=== PATIENT | male | born 1970 | race Caucasian/White ===

== ENCOUNTER 2017-01-05 17:32 | Emergency (ER) ==
--- NOTE | 2017-01-05 18:48 | PROVIDER DOCUMENTATION ---
HPI-Abdominal Pain/GI Problem <Rylee Desai Jr - Last Filed: 01/05/17 20:02> - General Source: patient - History of Present Illness-ABD Nature of Presenting Problems: Pt is a 46 yom who presents to ER with CC of N/V since , and diarrhea since Thursday. Pt reports that him and his ate at [employer] on , and pt went to work later that night. Pt reports that he did feel a little uneasy, but decided to go to work anyways. Pt said he arrived at work, vomited several times, was offered to go home, but decided to stay and work. Pt reports that when he went home after work, his feet and scalp felt like they were "on fire" for approximately 3 hours. Pt reports that he has vomited approximately 5-10 times, and had 4 episodes of diarrhea. Pt also complains of loss of appetite since Thursday and now his feet feel as though he has been walking on hot coals. Abdominal Pain Onset Location: reports: generalized abdomen Pain Radiation: reports: no radiation Quality of Pain: reports: burning, cramping Severity in ED: reports: moderate Onset/Duration: reports: 3 days ago Timing: reports: still present, constant Activities at Onset: reports: eating Associated Symptoms: reports: diarrhea, fatigue, loss of appetite, nausea, vomiting, weakness, trouble walking. denies: anxiety, arm pain, back/neck pain , chest pain, constipation, cough, diaphoresis, dizziness, EENT symptoms, fever/ chills, genitourinary problems, headaches, heartburn, joint pain, malaise, muscle aches, sinus congestion/drainage, rash, seizure, shortness of breath, sensory/motor loss, pain with inspiration, swelling/mass in abdomen, syncope Last BM: this evening Dark Stools Present?: reports: none noticed Rectal Bleeding: reports: none Rectal Pain: reports: none Emesis Description: reports: other (food particles; no blood) <Prasanna Cabrera - Last Filed: 01/05/17 20:07> - General Chief Complaint: N/V/D Stated Complaint: VOMITING,NAUSEA,DIARRHEA Time Seen by Provider: 01/05/17 18:34 Allergies/Adverse Reactions: Patient Allergies Allergy/AdvReac Type Severity Reaction Status Date / Time No Known Allergies Allergy Verified 11/26/16 17:25 Home Medications: Home Medication List Medication Instructions Recorded Confirmed Last Taken Type Albuterol Sulfate [Proair Hfa] 8.5 gm IH Q4-6H PRN PRN #1 11/26/16 Unknown Rx hfa.aer.ad Benzonatate [Tessalon] 100 mg PO TID PRN PRN #20 capsule 11/26/16 Unknown Rx Escitalopram Oxalate [Lexapro] 10 mg PO HS 11/26/16 11/26/16 11/25/16 21:00 History Famotidine [Pepcid] 20 mg PO DAILY #20 tablet 11/26/16 Unknown Rx Ibuprofen [Motrin] 800 mg PO Q8H PRN PRN #20 tablet 11/26/16 Unknown Rx Meloxicam [Mobic] 7.5 mg PO HS 11/26/16 11/26/16 11/25/16 21:00 History Clindamycin [Cleocin] 150 mg PO Q6HR #30 capsule 12/19/16 Unknown Rx Meloxicam [Mobic] 7.5 mg PO DAILY PRN PRN #15 tablet 12/19/16 Unknown Rx Mupirocin Ointment [Bactroban 1 applicatn TOP TID #1 tube 12/19/16 Unknown Rx Ointment] Promethazine [Phenergan] 25 mg PO Q6H PRN PRN #12 tablet 01/05/17 Unknown Rx Review of Systems - Adult - REVIEW OF SYSTEMS - ADULT Constitutional: denies: chills, fever, fatique, night sweats Eyes: reports: no symptoms reported Ears, Nose, Mouth & Throat: reports: no symptoms reported Cardiovascular: denies: chest pain, edema, heart murmur, irregular heart rate, orthopnea, palpitations, poor circulation, PND, syncope Respiratory: denies: chronic cough, cough, dyspnea on exertion, excessive sputum production, hemoptysis, pleurisy, shortness of breath, wheezing Gastrointestinal: reports: abdominal pain, diarrhea, nausea, poor appetite, vomiting. denies: hematemesis, constipation, difficulty swallowing, frequent heartburn, rectal bleeding Genitourinary: reports: no symptoms reported Musculoskeletal: reports: no symptoms reported Integumentary: reports: no symptoms reported Neurological: reports: other (burning sensation in bilateral plantar and scalp) . denies: ataxia, dizziness/vertigo, headache/migraines, loss of balance, numbness, paresthesia, seizure, slurred speech, syncope, tremors Psychiatric: reports: no symptoms reported Endocrine: reports: no symptoms reported Hematologic/Lymphatic: reports: no symptoms reported Allergic/Immunologic: reports: no symptoms reported All Other Systems: Reviewed and Negative <Prasanna Cabrera - Last Filed: 01/05/17 20:07> Past History - Adult - PAST MEDICAL HISTORY-ADULT Review of Records: reports: Nursing Assessment Review, Medications Reviewed - IMMUNIZATION STATUS Childhood Immunizations: See Nurse Assessment Flu Vaccine: See Nurse Assessment <RickPrasanna - Last Filed: 01/05/17 20:07> Physical Exam-General - PHYSICAL EXAM-ADULT Initial Vital Signs Reviewed: Yes - CONSTITUTIONAL General Appearance: appears well, alert, mild distress. negative: anxious, lethargic, slow to respond, obtunded, combative - RESPIRATORY Respiratory: chest non-tender, lungs clear, normal breath sounds. negative: respiratory distress, decreased breath sounds, accessory muscle use, wheezing - CARDIOVASCULAR Cardiovascular: normal peripheral pulses, regular rate, rhythm. negative: bradycardia, tachycardia, irregularly irregular - GASTROINTESTINAL (ABDOMEN) Abdominal Exam: non tender, soft, abnormal bowel sounds (hyperactive). negative : normal bowel sounds, distended, rebound, tenderness, mass - SKIN Integumentary: normal color, normal turgor, warm/dry. negative: diaphoresis, erythema, rash, swelling, tenderness, warm - NEUROLOGIC Neurologic: grossly normal, no motor/sensory deficits. negative: facial droop, focal weakness, motor weakness, sensory deficit - PSYCHIATRIC Psych/Mental Status: normal mood/affect, normal thought content, normal thought process, oriented x 3. negative: anxious, disheveled, depressed affect, paranoid, tearful <Prasanna Cabrera - Last Filed: 01/05/17 20:07> Progress - PLAN OF CARE/RESULTS Progress/Plan/Lab Results: Laboratory Tests 01/05/17 01/05/17 17:54 17:54 WBC 5.36 RBC 4.34 L Hgb 13.0 L Hct 39.5 L MCV 91.0 MCH 30.0 MCHC 32.9 L RDW Std Deviation 13.3 Plt Count 227 MPV 11.3 H Immature Gran % (Auto) 0.0 Neut % (Auto) 54.5 Lymph % (Auto) 26.7 [place] % (Auto) 12.3 H Eos % (Auto) 5.8 Baso % (Auto) 0.7 Immature Gran # (Auto) 0.00 Neut # (Auto) 2.92 Lymph # (Auto) 1.43 [place] # (Auto) 0.66 H Eos # (Auto) 0.31 Baso # (Auto) 0.04 Sodium 141 Potassium 4.3 Chloride 106 Carbon Dioxide 20 L Anion Gap 15 BUN 16 Creatinine 0.8 Estimated GFR/1.73 m2 > 60 BUN/Creatinine Ratio 20 Glucose 91 Calculated Osmolality 282 Calcium 9.5 Total Bilirubin 0.26 AST 40 H ALT 53 H Alkaline Phosphatase 159 H Total Protein 6.6 Albumin 3.8 Globulin 2.8 Albumin/Globulin Ratio 1.4 Amylase 74 Lipase 57 Orders Category Date Time Status Saline Loc DIRECTED Care 01/05/17 18:31 Active NPO Diet 01/05/17 18:31 Active AMYLASE [CHEM] Stat Lab 01/05/17 17:54 Completed CBC WITH ELECTRONIC DIFF [HEME] Stat Lab 01/05/17 17:54 Completed COMPREHENSIVE METABOLIC PANEL [CHEM] Stat Lab 01/05/17 17:54 Completed LIPASE [CHEM] Stat Lab 01/05/17 17:54 Completed URINALYSIS W/POSS RFLX CULT [URINALYSIS] Stat Lab 01/05/17 18:31 Uncollected Vital Signs - 24 hr 01/05/17 17:42 Temperature 98.2 F Pulse Rate 92 H Respiratory 20 Rate Blood Pressure 116/76 O2 Sat by Pulse 99 Oximetry <Rylee Desai Jr - Last Filed: 01/05/17 20:02> - PLAN OF CARE/RESULTS Progress/Plan/Lab Results: Vital Signs - 24 hr 01/05/17 17:42 Temperature 98.2 F Pulse Rate 92 H Respiratory 20 Rate Blood Pressure 116/76 O2 Sat by Pulse 99 Oximetry Orders Category Date Time Status NPO Diet 01/05/17 18:31 Active AMYLASE [CHEM] Stat Lab 01/05/17 17:54 Completed CBC WITH ELECTRONIC DIFF [HEME] Stat Lab 01/05/17 17:54 Completed COMPREHENSIVE METABOLIC PANEL [CHEM] Stat Lab 01/05/17 17:54 Completed LIPASE [CHEM] Stat Lab 01/05/17 17:54 Completed URINALYSIS W/POSS RFLX CULT [URINALYSIS] Stat Lab 01/05/17 18:31 Uncollected Laboratory Tests 01/05/17 01/05/17 17:54 17:54 WBC 5.36 RBC 4.34 L Hgb 13.0 L Hct 39.5 L MCV 91.0 MCH 30.0 MCHC 32.9 L RDW Std Deviation 13.3 Plt Count 227 MPV 11.3 H Immature Gran % (Auto) 0.0 Neut % (Auto) 54.5 Lymph % (Auto) 26.7 [place] % (Auto) 12.3 H Eos % (Auto) 5.8 Baso % (Auto) 0.7 Immature Gran # (Auto) 0.00 Neut # (Auto) 2.92 Lymph # (Auto) 1.43 [place] # (Auto) 0.66 H Eos # (Auto) 0.31 Baso # (Auto) 0.04 Sodium 141 Potassium 4.3 Chloride 106 Carbon Dioxide 20 L Anion Gap 15 BUN 16 Creatinine 0.8 Estimated GFR/1.73 m2 > 60 BUN/Creatinine Ratio 20 Glucose 91 Calculated Osmolality 282 Calcium 9.5 Total Bilirubin 0.26 AST 40 H ALT 53 H Alkaline Phosphatase 159 H Total Protein 6.6 Albumin 3.8 Globulin 2.8 Albumin/Globulin Ratio 1.4 Amylase 74 Lipase 57 <Prasanna Cabrera - Last Filed: 01/05/17 20:07> Departure - Departure Time of Disposition Order: 20:02 Certified Medical Emergency: Emergent <Rylee Desai Jr - Last Filed: 01/05/17 20:02> - Departure Time of Disposition Order: 20:07 Certified Medical Emergency: Emergent <Prasanna Cabrera - Last Filed: 01/05/17 20:07> - Departure DIAGNOSIS: Gastroenteritis Disposition: HOME 01 Condition: Good Additional Instructions: ED Follow Up Instructions: You have been treated by a care provider in the Emergency Department. These instructions are being provided to you so you can have an understanding of how to care for yourself upon discharge. Upon discharge from the Emergency Department, you are responsible for making arrangements for follow-up care by a physician of your choice. Take all prescribed medications as directed. Return to the Emergency Department immediately for any new or worsening symptoms. You may call the Physician Referral phone number at [phone] to obtain a list of Physicians who are taking new patients. Prescriptions: Promethazine [Phenergan] 25 mg PO Q6H PRN PRN #12 tablet PRN Reason: Nausea And Vomiting Referrals: Briseida Zayas CRNP [Primary Care Provider] - Attestation - Scribe Verification/Attestation Scribe:: Prasanna Cabrera Acting as Scribe for:: Rylee Desai Jr Scribe documention review:: This chart was documented by a scribe and accurately reflects the service the provider performed and the decisions made by the provider. <Prasanna Cabrera - Last Filed: 01/05/17 20:07> Physician Attestation - Physician Attestation I, the provider, attest to the following statement:: Rylee Desai Jr Physician documentation Attestation:: This documentation recorded by the scribe accurately reflects the service I personally performed and the decisions made by me. <Rylee Desai Jr - Last Filed: 01/05/17 20:02>
[2017-01-05 19:16] LABS: MANUAL DIFF NEEDED? NO
[2017-01-05 19:22] LABS: BASO% 0.7 % (0.0-0.8); EOS# 0.31 X1000 (0.0-0.7); EOS% 5.8 % (0.0-10.0); HEMATOCRIT 39.5 % (42.0-52.0); LYMPH# 1.43 X1000 (1.2-3.4); LYMPH% 26.7 % (20.5-51.1); MCHC 32.9 g/dL (33-37); MONO# 0.66 X1000 (0.11-0.59); MONO% 12.3 % (1.7-9.3); MPV 11.3 FL (7.4-10.4); NEUT% 54.5 % (42.2-75.2); PLT 227 X1000 (130-400); RBC 4.34 XMIL (4.7-6.1)
[2017-01-05 19:52] LABS: AGAP 15; ALBUMIN 3.8 g/dL (3.5-5.0); ALKALINE PHOSPHATASE 159 U/L (32-122); AMYLASE 74 U/L (20-200); BUN 16 mg/dL (8-22); CALCIUM 9.5 mg/dL (8.8-10.2); CHLORIDE 106 mmol/L (98-107); COSMO 282; GOT 40 U/L (10-34); GPT 53 U/L (10-44); LIPASE 57 U/L (13-60); POTASSIUM 4.3 mmol/L (3.5-5.1); SODIUM 141 mmol/L (136-145); TCO2 20 mmol/L (25-35); TOTAL BILIRUBIN 0.26 mg/dL (0.20-1.00); TOTAL PROTEIN 6.6 g/dL (6.3-8.3)
[2017-01-05 20:17] VITALS: BP 118/78
== END 2017-01-05 20:16 | disposition home or self-care (01) ==
LOC: ED 17:32
DX: K52.9 Noninfective gastroenteritis and colitis, unspecified (principal); R11.2 Nausea with vomiting, unspecified; R10.84 Generalized abdominal pain; R19.7 Diarrhea, unspecified; R53.83 Other fatigue; R20.8 Other disturbances of skin sensation; Z79.899 Other long term (current) drug therapy; Z79.1 Long term (current) use of non-steroidal anti-inflammatories (NSAID)
CPT/HCPCS: 80053; 82150; 83690; 85025